=== PATIENT | male | born 1955 | race Caucasian/White ===

== ENCOUNTER 2017-04-09 14:44 | Emergency (ER) | payer OTHER, MEDICAID, MEDICARE ==
[2017-04-09] MEDS: LORAZEPAM 0.5 MG TAB PO (15:20)
== END 2017-04-09 18:22 | disposition home or self-care (01) ==
LOC: E/R 14:44
DX: G47.00 Insomnia, unspecified (principal); Z76.0 Encounter for issue of repeat prescription; Z87.891 Personal history of nicotine dependence
CPT/HCPCS: 99283